=== PATIENT | male | born 1995 | race Caucasian/White ===

== ENCOUNTER 2018-04-12 18:18 | Observation (INO) | payer OTHER ==
[2018-04-12] MEDS ORDERED: HYDROmorphONE/DILAUDID 2 MG/ML INJ IVP ONE (18:23)
[2018-04-12] MEDS ORDERED: NS 1,000 ML IV ONE (18:23)
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
[2018-04-12] MEDS ORDERED: HYDROmorphONE/DILAUDID 1 MG/ML INJ IVP ONE (18:43)
[2018-04-12 18:49] LABS: PLATELET COUNT 277 10^3/uL (150-400)
[2018-04-12 18:58] LABS: INR 1.03 (0.83-1.16); PROTIME(PATIENT) 13.7 SEC (12.0-15.0)
[2018-04-12] MEDS ORDERED: LIDOCAINE 1% 300 MG/30 ML SDV ONE (19:17)
[2018-04-12] MEDS ORDERED: BUPIVACAINE 0.5% 30 ML SDV ONE (19:17)
[2018-04-12] MEDS ORDERED: POLYMYXIN B SULFATE 500,000 UNIT/10 ML SYR IRR ONE (19:18)
[2018-04-12] MEDS ORDERED: BACITRACIN 50,000 UNITS/10 ML SYR IRR ONE (19:18)
[2018-04-12] MEDS ORDERED: PROPOFOL 200 MG/20 ML VIAL ONE (19:32)
[2018-04-12] MEDS ORDERED: fentaNYL 100 MCG/2 ML INJ ONE (19:32)
[2018-04-12] MEDS ORDERED: ROCURONIUM 50 MG/5 ML VIAL ONE ×2 (20:14)
[2018-04-12] MEDS ORDERED: MIDAZOLAM 2 MG/2 ML VIAL ONE (20:14)
[2018-04-12] MEDS ORDERED: LIDOCAINE 2% 5 ML SDV ONE (20:14)
--- NOTE | 2018-04-12 20:16 | PDANEPAE ---
ANE History of Present Illness 22 year old male w/ traumatic open left patellar fracture. ANE Past Medical History - Cardiovascular History Hx Hypertension: No Hx Arrhythmias: No Hx Chest Pain: No Hx Coronary Artery / Peripheral Vascular Disease: No Hx CHF / Valvular Disease: No Hx Palpitations: No - Pulmonary History Hx COPD: No Hx Asthma/Reactive Airway Disease: No Hx Recent Upper Respiratory Infection: No Hx Oxygen in Use at Home: No Hx Sleep Apnea: No - Neurologic History Hx Cerebrovascular Accident: No Hx Seizures: No Hx Dementia: No - Endocrine History Hx Diabetes: No Hypothyroid: No Hyperthyroid: No Obesity: no - Renal History Hx Renal Disorders: No - Liver History Hx Hepatic Disorders: No - Neurological & Psychiatric Hx Hx Neurological and Psychiatric Disorders: No - Cancer History Hx Cancer: No - Chronic Pain History Chronic Pain: No - Surgical History Prior Surgeries: 2 prior left shoulders, 1 right shoulder and right ACL per patient report ANE Review of Systems Review of Systems: - Exercise capacity Exercise capacity: >=4 METS ANE Patient History - Allergies Allergies/Adverse Reactions: nickel Allergy (Verified 04/12/18 18:24) - Home Medications Home medications: home medication list seen and reviewed Home Medications: Adderall 10 MG (*) 04/12/18 [Last Taken Unknown] Cbd 04/12/18 [Last Taken Unknown] - NPO status NPO Since - Liquids (Date): 04/12/18 NPO Since - Liquids (Time): 17:30 NPO Since - Solids (Date): 04/12/18 NPO Since - Solids (Time): 15:00 - Anes Hx Anes Hx: no prior problems - Smoking Hx Smoking Status: Current every day smoker Marijuana use: Yes - Alcohol Use Alcohol Use: Occasionally (15 drinks/week per patient report) - Family Anes Hx Family Anes Hx: neg - N/A ANE Labs/Vital Signs - Labs Result Diagrams: 04/12/18 18:40 04/12/18 18:40 - Vital Signs Vital Signs: reviewed preoperatively; see RN documention for details Blood Pressure: 125/65 Heart Rate: 91 Respiratory Rate: 14 O2 Sat (%): 98 Weight: 72.575 kg ANE Physical Exam - Airway Neck exam: FROM Mallampati Score: Class 2 Mouth exam: normal dental/mouth exam, bentley - Pulmonary Pulmonary: no respiratory distress - Cardiovascular Cardiovascular: regular rate and rhythym - ASA Status ASA Status: I, E (Confirmed "Emergent" with face to face conversation with orthopaedic surgeon. NPO status of approx. 5 hours) ANE Anesthesia Plan Anesthesia Plan: general endotracheal anesthesia Total IV Anesthesia: No Urgent/Emergent Case: Anes eval completed preop but documented later for safe timely pt care
[2018-04-12] MEDS ORDERED: ceFAZolin 1 GM VIAL ONE (20:20)
[2018-04-12] MEDS ORDERED: DIAZEPAM 5 MG/ML 1 ML SYR IVP PRN (20:27)
[2018-04-12] MEDS ORDERED: oxyCODONE IR 5 MG TAB PO PRN (20:27)
[2018-04-12] MEDS ORDERED: HYDROmorphONE/DILAUDID 1 MG/ML INJ IVP PRN ×2 (20:27→22:42)
[2018-04-12] MEDS ORDERED: LR 500 ML IV PRN (20:27)
[2018-04-12] MEDS ORDERED: ACETAMINOPHEN 500 MG TAB PO PRN (20:27)
[2018-04-12] MEDS ORDERED: fentaNYL 100 MCG/2 ML INJ IVP PRN (20:27)
[2018-04-12] MEDS ORDERED: ALBUTEROL 3 ML DEYVIAL IH PRN (20:27)
[2018-04-12] MEDS ORDERED: ONDANSETRON 4 MG/2 ML VIAL IVP PRN ×2 (20:27→22:42)
[2018-04-12] MEDS ORDERED: PROMETHAZINE HCL 25 MG/ML INJ IVP PRN (20:27)
[2018-04-12] MEDS ORDERED: NALOXONE HCL 0.4 MG/ML INJ IVP PRN (20:27)
[2018-04-12] MEDS ORDERED: DEXAMETHASONE 4 MG/ML VIAL ONE (20:35)
[2018-04-12] MEDS ORDERED: ONDANSETRON 4 MG/2 ML VIAL ONE ×2 (20:36→23:30)
[2018-04-12] MEDS ORDERED: SUGAMMADEX SODIUM 200 MG/2 ML VIAL IVP ONE (20:48)
[2018-04-12] MEDS ORDERED: HYDROmorphONE/DILAUDID 2 MG/ML INJ ONE (21:16)
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
--- NOTE | 2018-04-12 22:41 | POSTOPPROG ---
Post Op Note Date of Operation: 04/12/18 Surgeon: Arvind Lutz Python Programmer: Gladis Nash PA-C Anesthesiologist: Bob Castro MD Anesthesia: GET(General Endotracheal) Pre-op Diagnosis: left open patella fracture Post-op Diagnosis: left open patella fracture Indication: left open patella fracture Procedure: left patella I&D and ORIF Inf/Abcess present in the surg proc area at time of surgery?: No EBL: 50-100 Complications: None
[2018-04-12] MEDS ORDERED: D5W 1/2 NS W/ 20 KCl/L 1,000 ML IV SCH (22:45)
--- NOTE | 2018-04-13 00:25 | POSTANESTH ---
Post Anesthetic Evaluation Cardiovascular Status: Normal, Stable, Similar to Pre-Op Cond Respiratory Status: Normal, Stable, Similar to Pre-op Cond. Level of Consciousness/Mental Status: Can Participate in Eval, Alert and Oriented Pain Control: Adequate, Prn Tx Ordered Nausea/Vomiting Control: Adequate, Prn Tx Ordered (Did have emesis in PACU, but patient known full stomach at time of surgery. Patient alert at that time, no concerns for aspiration.) Complications Possibly Related to Anesthesia: None Noted
[2018-04-13] MEDS: OXYCODONE/APAP 5/325 TAB PO PRN ×4 (01:44→13:12)
[2018-04-13 07:22] VITALS: BP 143/83
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
[2018-04-13] MEDS ORDERED: ADDERALL 10 MG TAB PO PRN (13:00)
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
== END 2018-04-13 15:15 | disposition home or self-care (01) ==
LOC: EDUNIT# → FSGY 19:45 → UNDOADMOB 19:57 → F2W 19:57 → F3E 22:42 → F3N 23:38
PROVIDERS: ADMIT Orthopaedic Surgery Hand Surgery; ATTEND Orthopaedic Surgery Hand Surgery
PROC: 0QBF0ZZ Excision of Left Patella, Open Approach (ICD-10-PCS; principal; 2018-04-12 19:45)
PROC: 0QH Lower Bones, Insertion (ICD-10-PCS; principal; 2018-04-12 19:45)
DX: S82.002B Unspecified fracture of left patella, initial encounter for open fracture type I or II (principal); V11.2XXA Unspecified pedal cyclist injured in collision with other pedal cycle in nontraffic accident, initial encounter; Y93.55 Activity, bike riding; Y92.482 Bike path as the place of occurrence of the external cause; Y99.9 Unspecified external cause status
CPT/HCPCS: 27340; 27524; 73560; 76001; 97161; 97165; 97535; G0378; 96365; C1713; J0690; J1100; J1170; J2250; J2405; J2704; J3010; L1832

== ENCOUNTER 2019-03-02 19:54 | Emergency (ER) | payer OTHER | END 2019-03-02 21:59 | disposition home or self-care (01) ==